=== PATIENT | male | born 1985 | race Caucasian/White ===

== ENCOUNTER 2021-02-25 13:05 | Emergency (ER) | payer OTHER ==
[~2021-02-25] VITALS: Ht 177.8 cm; Wt 105.3 kg
[2021-02-25] MEDS ORDERED: LIDOCAINE 1% MDV 20ML VIAL SC ONE (15:30)
[2021-02-25 16:06] VITALS: BP 154/81
== END 2021-02-25 16:10 | disposition home or self-care (01) ==
LOC: M ED 13:05
DX: S81.819A Laceration without foreign body, unspecified lower leg, initial encounter (principal); W29.8XXA Contact with other powered hand tools and household machinery, initial encounter; Y99.0 Civilian activity done for income or pay; Y92.9 Unspecified place or not applicable; Y93.01 Activity, walking, marching and hiking